=== PATIENT | female | born 1990 | race Two or more races ===

== ENCOUNTER 2024-07-17 20:47 | Emergency (ER) | payer OTHER ==
[~2024-07-17] VITALS: Ht 162.6 cm; Wt 63.5 kg
[2024-07-17] MEDS ORDERED: ACETAMINOPHEN 500 MG GEL..CAP PO ONE (22:15)
[2024-07-18] MEDS ORDERED: ZITHROMAX500 MG PO (01:17)
[2024-07-18] MEDS ORDERED: TUSNEL LIQUID178 ML PO (01:17)
== END 2024-07-18 01:27 | disposition home or self-care (01) ==
LOC: ER 20:49
DX: R53.81 Other malaise (principal); J06.9 Acute upper respiratory infection, unspecified; Z88.6 Allergy status to analgesic agent